=== PATIENT | male | born 1975 | race Two or more races ===

== ENCOUNTER 2019-08-03 12:25 | Emergency (ER) | payer SELFPAY ==
[~2019-08-03] VITALS: Ht 177.8 cm; Wt 127.0 kg
[2019-08-03] MEDS ORDERED: cloNIDine HCL 0.1 MG TAB PO ONE (12:45)
[2019-08-03 13:02] VITALS: BP 152/100
[2019-08-03 13:31] LABS: Basophils # (auto) 0.1 uL; Basophils % (auto) 0.7 % (0.0-2.0); Eosinophils # (auto) 0.5 uL; Eosinophils % (auto) 6.1 % (0.0-7.0); Hematocrit 49.6 % (41.0-53.0); Lymphocytes # (auto) 3.9 uL; Lymphocytes % (auto) 48.7 % (10.0-50.0); Mean Corpuscular Hgb Conc. 34.2 g/dL (32.0-36.0); Mean Corpuscular Volume 90.7 fL (80.0-100.0); Monocytes # (auto) 0.5 uL; Monocytes % (auto) 5.8 % (0.0-12.0); Neutrophils # (auto) 3.1 uL; Neutrophils % (auto) 38.7 % (37.0-80.0); Nucleated Red Blood Cells % 0.1 %; Platelet Count (auto) 146 10^3/uL (140-450); Red Blood Cells 5.47 10^6/uL (4.5-5.90); Red Cell Distribution Width 13.9 % (11.8-14.3)
[2019-08-03 13:44] LABS: Albumin 3.7 g/dL (3.4-5.0); Anion Gap 8 (5-15); Blood Urea Nitrogen 8 mg/dL (7-18); Carbon Dioxide 22 mmol/L (21-32); Chloride 107 mmol/L (98-107); Glucose 96 mg/dL (74-106); Magnesium 2.3 mg/dL (1.6-2.6); Potassium 4.1 mmol/L (3.5-5.1); Sodium 137 mmol/L (136-145)
[2019-08-03 13:46] LABS: Alanine Aminotransferase 136 U/L (16-61); Aspartate Aminotransferase 115 U/L (15-37); BUN/Creatinine Ratio 10.1; GFR African American 137 mL/min; GFR Non-African American 113 mL/min
[2019-08-03 13:51] LABS: Alkaline Phosphatase 132 U/L (45-117); Bilirubin, Total 0.3 mg/dL (0.2-1.0); Total Protein 8.2 g/dL (6.4-8.2)
== END 2019-08-03 14:32 | disposition home or self-care (01) ==
LOC: ER 12:25
DX: I10 Essential (primary) hypertension (principal); G45.9 Transient cerebral ischemic attack, unspecified; Z90.89 Acquired absence of other organs
CPT/HCPCS: 36415; 70450; 80053; 83735; 84484; 85025; 93005